=== PATIENT | male | born 1965 | race Caucasian/White ===

== ENCOUNTER 2018-11-08 11:23 | Inpatient (IN) | payer OTHER, SELFPAY ==
[2018-11-08] MEDS ORDERED: EPINEPHrine 1 MG/10 ML Abboject SYRINGE ONE (11:33)
[2018-11-08] MEDS ORDERED: Atropine Sulfate 1 mg/1 ml Vial ONE ×2 (11:33→11:36)
[2018-11-08] MEDS ORDERED: Atropine Sulfate 1 mg/10 ml Syringe ONE ×2 (11:33→11:36)
[2018-11-08] MEDS ORDERED: Nitroglycerin 100MG/250ML BOT 250 ML ONE (11:34)
[2018-11-08] MEDS ORDERED: Heparin 10,000 UNITS/1 ML VIAL ONE (11:56)
[2018-11-08] MEDS ORDERED: Midazolam HCl 2 mg/2 ml Vial ONE (11:56)
[2018-11-08] MEDS ORDERED: Iopamidol 370 76% 100 ML VIAL ONE (11:59)
[2018-11-08] MEDS ORDERED: Fentanyl 100 MCG/2 ML VIAL ONE (12:19)
[2018-11-08] MEDS ORDERED: Aspirin Chewable 81 MG TAB ONE (13:38)
[2018-11-08] MEDS ORDERED: Sodium Chloride 0.9% 200 ML IV PRN (13:52)
[2018-11-08] MEDS ORDERED: Acetaminophen/Codeine 30-300mg Tablet PO PRN ×2 (13:52)
[2018-11-08] MEDS ORDERED: Nitroglycerin 0.4 MG TAB (25 Tab Bottle) SL PRN (13:52)
[2018-11-08] MEDS ORDERED: Ondansetron PF 4 MG/2 ML Vial IVP PRN (13:54)
[2018-11-08] MEDS ORDERED: Sodium Chloride 0.9% 1,000 ML IV SCH (14:30)
[2018-11-08] MEDS ORDERED: Carvedilol 3.125 MG TAB PO SCH (17:00)
--- NOTE | 2018-11-08 17:10 | EKG ---
Test Reason : POST PTCA/STENTS X 2 Blood Pressure : / mmHG Vent. Rate : 059 BPM Atrial Rate : 059 BPM P-R Int : 158 ms QRS Dur : 084 ms QT Int : 434 ms P-R-T Axes : 049 015 -31 degrees QTc Int : 429 ms Sinus bradycardia Septal infarct , age undetermined Inferior infarct , age undetermined Abnormal ECG No previous ECGs available Confirmed by Carloz PALUMBO ([id number]) on 11/08/2018 5:09:49 PM Referred By: LAVERNE Confirmed By:Carloz PALUMBO
[2018-11-08 18:12] LABS: CKMB 26.1 ng/mL (0-6.6)
--- NOTE | 2018-11-08 20:32 | HP ---
REASON FOR ADMISSION: Acute inferior myocardial infarction. HISTORY OF PRESENT ILLNESS: Mr. Hanks is a very pleasant 53-year-old man with acute myocardial infarction. The patient has been having chest pain, which has been intense since really the previous day. However, this morning it intensified and he ultimately went to the emergency room in [facility]. He was found to be having acute inferior myocardial infarction. He had transient bradycardia. He was transferred here for emergency intervention. PAST MEDICAL HISTORY: 1. History of chest pain about a year ago with negative cardiac enzymes. 2. Some history of high cholesterol, but he does not know the levels. 3. Otherwise no medical history. No cardiac history. MEDICATION: On a routine basis is none. ALLERGIES: NONE. FAMILY HISTORY: Negative for heart disease in a young age. SOCIAL HISTORY: Smoked briefly in high school, but no significant tobacco use. He is a retired residential lawn specialist. REVIEW OF SYSTEMS: CONSTITUTIONAL: Positive for weakness, fatigue, and intense pain. VISION: No changes. HEARING: No changes. PULMONARY: No cough or wheezing. GASTROINTESTINAL: No nausea, vomiting, diarrhea. SKIN: No rashes. NEUROLOGIC: No unilateral weakness or numbness. PSYCHIATRIC: No unusual depression or anxiety. PHYSICAL EXAMINATION: GENERAL: This is an ill-appearing middle-aged gentleman with continued distress. VITAL SIGNS: Blood pressure was 120/70, pulse 70s. HEENT: Eyes; sclerae nonicteric. Mouth; mucous membranes moist. NECK: Supple. No lymphadenopathy. LUNGS: Clear. No wheezing, rales, or rhonchi. CARDIAC: Normal S1, normal S2. There is no murmur, rub, or gallop. ABDOMEN: Soft and nontender. No hepatosplenomegaly. EXTREMITIES: Warm, dry. No clubbing or cyanosis. No edema. HEMATOLOGIC: No unusual bruising. PSYCHIATRIC: Apprehensive. LABORATORY STUDIES: EKG showed sinus rhythm with inferior ST elevation. ASSESSMENT: 1. Acute inferior myocardial infarction. 2. Remote history of hypercholesterolemia. 3. Previous history of chest pain about a year ago. PLAN: Proceed to cardiac catheterization and intervention as indicated. Discussed risks quickly, iodine allergy. He understood risk of including bleeding, stent thrombosis, stent restenosis, emergency surgery, and emergency arrangements were being made and pursued. The patient had successful stent implantation in the right coronary artery as outlined in the chart. Job ID: [id number]
[2018-11-08] MEDS: TICAGRELOR 90 MG TABLET PO SCH (21:38)
[2018-11-09 06:52] LABS: CKMB 17.1 ng/mL (0-6.6); Critical Call CKMB RESULT DECREASING
[2018-11-09] MEDS: TICAGRELOR 90 MG TABLET PO SCH ×2 (09:15→20:26)
[2018-11-09] MEDS: Aspirin 81 mg Enteric Coated Tablet PO SCH (09:15)
--- NOTE | 2018-11-09 11:44 | PRG ---
DATE OF SERVICE: 11/09/2018 SUBJECTIVE: Mr. Hanks is doing well. He does have some mild groin soreness. Yesterday, the Coreg had to be held as the heart rate was in the mid 50s. OBJECTIVE: LUNGS: Clear. CARDIAC: Normal S1 and normal S2. ABDOMEN: Soft and nontender. EXTREMITIES: No edema. PERTINENT LABORATORY DATA: The troponin only went up to 5.2. LDL cholesterol this morning is 150. ASSESSMENT: 1. Status post inferior myocardial infarction treated with emergency stent implantation. 2. Also has diffuse coronary artery disease in the other vessels. PLAN: 1. Try again with carvedilol. 2. Lisinopril. 3. Aspirin and ticagrelor. 4. Statin therapy. 5. Try to transfer to the telemetry unit. Job ID: [id number]
[2018-11-09] MEDS: Carvedilol 3.125 MG TAB PO SCH (16:25)
--- NOTE | 2018-11-09 16:40 | ULT ---
US PseudoAneurysm Edgar Evl History: [Groin soreness. Post PCI] Comparison: None. Findings: Real-time grayscale and color evaluation of the right groin was obtained. There is hematoma . No pseudoaneurysm. Impression: Soft tissue hematoma without pseudoaneurysm.
[2018-11-09] MEDS ORDERED: Atorvastatin Calcium 40 MG TAB PO SCH (21:00)
--- NOTE | 2018-11-10 08:31 | CON ---
DATE OF CONSULTATION: 11/09/2018 HISTORY OF PRESENT ILLNESS: Mr. Hanks is a 53-year-old male who presented with myocardial infarction. He is going to the bed laborer for coronary stenting. Peak troponin measured this morning at 5.2. He apparently has been having chest pain for several days. He actually cut his yard while he is having chest pain, then decided prior to come in that he just could not take the discomfort anymore. He was transferred here. PAST MEDICAL HISTORY: Remarkable for lipid disorder. SOCIAL HISTORY: He is a nonsmoker, nondrinker. 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 FAMILY HISTORY: Negative for lung or heart disease in early age. REVIEW OF SYSTEMS: A 10-point review of systems completed, is otherwise negative. PHYSICAL EXAMINATION: GENERAL: He is in no distress. VITAL SIGNS: Heart rate 60, blood pressure 143/85, respiratory rate 14. HEENT: Pupils are equal. Sclerae are anicteric. NECK: Supple. No lymphadenopathy. LUNGS: Clear. HEART: Regular rhythm. S1 and S2 are normal. ABDOMEN: Soft and nontender. EXTREMITIES: Without clubbing, cyanosis, or edema. NEURO: Nonfocal. LABORATORY DATA: White count 7.3, hemoglobin 15.8, platelets 200,000. Sodium 140, potassium 3.7, chloride 104, bicarb 22, BUN 13, creatinine 1, glucose 141 yesterday at 1020 hours. IMPRESSION: Myocardial infarction status post percutaneous intervention ____ placement of a stent by Dr. Garcia. We will follow while he is in ICU. This is a 70 minute consult, with greater than 50% of time spent on unit coordinating care. Job ID: [id number] [facility]
[2018-11-10] MEDS: Aspirin 81 mg Enteric Coated Tablet PO SCH ×2 (08:49→08:58)
[2018-11-10] MEDS: Carvedilol 3.125 MG TAB PO SCH ×2 (08:50→17:07)
[2018-11-10] MEDS: TICAGRELOR 90 MG TABLET PO SCH (08:51)
[2018-11-10] MEDS ORDERED: Lisinopril 5 MG TAB PO SCH (09:00)
[2018-11-10] MEDS ORDERED: Lisinopril 2.5 MG TAB PO SCH (09:00)
[2018-11-10 15:40] VITALS: BP 108/69; TEMP 98.7
[2018-11-10] MEDS ORDERED: Rosuvastatin 20 MG TAB PO SCH (21:00)
--- NOTE | 2018-11-11 04:34 | DIS ---
DATE OF ADMISSION: 11/08/2018 DATE OF DISCHARGE: 11/10/2018 FINAL DIAGNOSES: 1. Acute myocardial infarction, inferior wall, treated with emergency stent implantation. 2. Hypercholesterolemia. MEDICATIONS: At the time of discharge: 1. Brilinta 90 mg tablet one twice daily. 2. Aspirin 81 mg daily. 3. Carvedilol 3.125 mg twice daily. 4. Crestor 40 mg daily. 5. Lisinopril 5 mg daily. 6. Nitroglycerin 1/150 sublingual p.r.n. chest pain. Follow up with the with Dr. Mahan in a week to see us in a couple of weeks. The patient was brought to the cardiac catheterization lab in an emergency state. He presented with an acute inferior myocardial infarction, was found to have 100% occlusion of the right coronary artery. The patient had 2 stents placed. It was a 3.5 x 28 mm stent placed more distally and then a 4.0 x 28 mm stent placed more proximally. The distal stent was post dilated with a high-pressure balloon of 3.5 mm. The mid stent was dilated to 4 mm with 4 mm x 28 mm balloon. The patient did very well, ejection fraction is 40%. This patient does have a 50% lesion in the right coronary more distally, the LAD has diffuse 60-70 percent proximal and mid with moderate calcium. There is also borderline stenosis in the circumflex distribution. The patient was completely asymptomatic prior to his infarction. PERTINENT LABORATORY DATA: The peak troponin level was only 5.2, which is relatively small enzyme rise for such a large vessel indicating that there was very likely we are going to see a lot of improvement in left ventricular function. Total cholesterol was 210, LDL was 153, that was drawn the morning after the infarct. Hemoglobin is 15.8, potassium 3.7 on the 10th. BUN was 13, creatinine 1. Only very low dose Coreg could be tolerated because of lower heart rates. The patient will be released home to see us in followup. I would recommend aggressive medical therapy for the rest of the vessels. No further percutaneous intervention is planned at this time. At some point, we will probably do stress testing perhaps 6 months out to re-evaluate functional status. The patient will be released today to be followed up in the office. Job ID: [id number]
== END 2018-11-10 18:59 | disposition home or self-care (01) | DRG 247 ==
LOC: CCL 11:23 → CCU 12:01 → 2NO 11-09 16:56
PROVIDERS: ADMIT Internal Medicine Cardiovascular Disease; ATTEND Internal Medicine Cardiovascular Disease
PROC: 027135Z Dilation of Coronary Artery, Two Arteries with Two Drug-eluting Intraluminal Devices, Percutaneous Approach (ICD-10-PCS; principal; 2018-11-08)
PROC: 4A023N7 Measurement of Cardiac Sampling and Pressure, Left Heart, Percutaneous Approach (ICD-10-PCS; 2018-11-08)
PROC: B2151ZZ Fluoroscopy of Left Heart using Low Osmolar Contrast (ICD-10-PCS; 2018-11-08)
PROC: B2111ZZ Fluoroscopy of Multiple Coronary Arteries using Low Osmolar Contrast (ICD-10-PCS; 2018-11-08)
DX: I21.9 Acute myocardial infarction, unspecified (principal); E78.00 Pure hypercholesterolemia, unspecified; Z87.891 Personal history of nicotine dependence; Z79.899 Other long term (current) drug therapy
CPT/HCPCS: 36415; 76942; 80061; 82553; 84484; 85347; 92941; 93005; 93010; 93458; 93798; 93926; 99152; 99153; C1769; C1874; C1887; C9606; J0171; J0461; J1644; J2250; J3010; Q9967

== ENCOUNTER 2023-06-12 08:25 | Inpatient (IN) | payer OTHER ==
[2023-06-12] MEDS ORDERED: Ondansetron PF 4 MG/2 ML Vial ONE (08:29)
[2023-06-12] MEDS ORDERED: NOREPINEPHRINE 8 MG/250 ML-D5W 250 ML ONE (08:48)
[2023-06-12 08:58] LABS: #Monocytes 0.6 thou/uL (0.11-0.59); #Neutrophils 6.8 thou/uL (1.40-6.50); %Basophils 0.3 % (0.0-1.0); %Eosinophils 0.4 % (0.0-10.0); %Lymphocytes 26.8 % (21.0-51.0); %Monocytes 5.3 % (0.0-10.0); %Neutrophils 64.7 % (42.0-75.0); Hematocrit 37.1 % (42.0-52.0); Hemoglobin 12.3 g/dL (14.0-18.0); Mean Corpuscular HGB CONC 33.2 g/dL (32.0-36.0); Mean Corpuscular Hemoglobin 33.5 pg (27.0-31.0); Mean Corpuscular Volume 101.1 fl (78.0-98.0); Mean Platelet Volume 10.1 fL (7.4-10.4); Platelet Count 190 10x3/uL (130-400); RBC Distribution Width 13.6 % (11.5-14.5); Red Blood Cell (RBC) Count 3.67 mill/uL (4.70-6.10); White Blood Cell (WBC) Count 10.5 10x3/uL (4.8-10.8)
[2023-06-12 09:17] LABS: ALT (SGPT) 44 U/L (8-55); AST (SGOT) 55 U/L (5-34); Albumin 3.8 g/dL (3.5-5.0); Alkaline Phosphatase 81 U/L (40-110); Anion Gap 15 mmol/L (10-20); BUN (Urea Nitrogen) 26 mg/dL (8.4-25.7); Bilirubin, Total 0.6 mg/dL (0.2-1.2); Calc. Creatinine Clearance 0 mL/min (70-130); Calcium 8.8 mg/dL (7.8-10.44); Carbon Dioxide 17 mmol/L (22-29); Chloride 106 mmol/L (98-107); Estimated GFR 94; Globulin 2.1 g/dL (2.4-3.5); Glucose 221 mg/dL (70-105); Lipase 21 U/L (8-78); Potassium 3.4 mmol/L (3.5-5.1); Protein, Total 5.9 g/dL (6.0-8.3); Sodium 135 mmol/L (136-145)
[2023-06-12] MEDS ORDERED: fentaNYL 50 mcg/mL 1 mL Vial ONE (09:17)
[2023-06-12 09:21] LABS: INR-International Normal Ratio 1.4; PTT 34.9 sec (22.9-36.1); Prothrombin Time 17.3 sec (12.0-14.7)
[2023-06-12 09:37] LABS: Bilirubin Negative (Negative); Blood, Urine 3+ (Negative); Clarity Clear (Clear); Glucose, Urine (Dipstick) Normal (Negative); Ketone, Urine Negative (Negative); Leukocyte Negative Leu/uL (Negative); Nitrite Negative (Negative); Protein, Urine (Dipstick) 30 mg/dL (Neg-Trace); Specific Gravity, Urine 1.022 (1.002-1.036); Urobilinogen Normal mg/dL (Less than 2)
[2023-06-12] MEDS ORDERED: EPINEPHrine 1 MG/ML VIAL ONE (09:46)
[2023-06-12] MEDS ORDERED: Boostrix 0.5 ML (Tdap) VIAL (>/=7 yrs of age) ONE (09:50)
[2023-06-12 09:56] LABS: CAUTI Indications for Culture Pelvic or flank pain; Squamous Epithelial 0-3 HPF (0-3); WBC/HPF 0-3 HPF (0-3)
[2023-06-12 09:57] LABS: Urine Culture Reflex No No
[2023-06-12] MEDS ORDERED: Ondansetron PF 4 MG/2 ML Vial IVP PRN (10:24)
[2023-06-12] MEDS ORDERED: Glucagon 1 MG/ML KIT IM PRN ×2 (10:24→17:23)
[2023-06-12] MEDS ORDERED: Ipratropium/Albuterol 3 ML NEB NEB PRN (10:24)
[2023-06-12] MEDS ORDERED: Morphine 2 MG/ML VIAL SLOW IVP PRN ×2 (10:24→12:30)
[2023-06-12] MEDS ORDERED: Dextrose 5% in Water 1,000 ML IV PRN ×2 (10:24→17:23)
[2023-06-12] MEDS ORDERED: traMADol HCl 50 MG TAB PO PRN (10:24)
[2023-06-12] MEDS ORDERED: Dextrose 50% Abboject 50 ML SYRINGE SLOW IVP PRN ×2 (10:24→17:23)
[2023-06-12] MEDS ORDERED: Norepinephrine 8 MG/0.9% NS 250 ML IVPB SCH (10:30)
[2023-06-12] MEDS ORDERED: EPINEPHrine 4 MG in Dextrose 5% in Water 250 ML IV SCH (10:30)
[2023-06-12] MEDS ORDERED: Vasopressin 20 UNITS in Sodium Chloride 0.9% 50 ML IV SCH (10:30)
[2023-06-12] MEDS ORDERED: EPINEPHrine 1 MG/10 ML Abboject SYRINGE ONE (10:32)
[2023-06-12] MEDS ORDERED: Iopamidol-370 76% 500 ML MDV (1 ML CHARGE) ONE (10:34)
[2023-06-12] MEDS ORDERED: Lidocaine 1% PF 5 ML VIAL ONE (10:57)
[2023-06-12] MEDS ORDERED: Lidocaine 1% (PF) 30 ML VIAL ONE (11:00)
[2023-06-12] MEDS ORDERED: Hydrocortisone Sod Succ/PF 100 mg/2 ml Vial ONE (11:23)
[2023-06-12] MEDS ORDERED: Ketamine In 0.9 % NaCl 50 MG/5 ML SYRINGE ONE ×2 (11:27→11:40)
[2023-06-12] MEDS ORDERED: Rocuronium Bromide 10 MG/ML (10ML VIAL) ONE (11:30)
[2023-06-12] MEDS ORDERED: Ketamine 500 mg/500 ml in NS IVPB SCH (12:15)
[2023-06-12] MEDS ORDERED: DISCONTINUE PREVIOUS NARCOTIC PAIN MEDICATIONS AND BENZODIAZEPINES FS SCH (12:30)
[2023-06-12] MEDS ORDERED: Fentanyl BOLUS 250 ML IVPB PRN (12:30)
[2023-06-12] MEDS ORDERED: Propofol BOLUS 1,000 MG/100 ML VIAL IV PRN (12:30)
[2023-06-12] MEDS ORDERED: Fentanyl CADD 100 ML ONE (12:32)
[2023-06-12 12:50] LABS: Lactic Acid 10.1 mmol/L (0.5-2.2)
[2023-06-12 12:55] LABS: Base Excess (BEa) -17.3 mEq/L (-2.0 to +3.0); CO2 Tension 39.2 mmHg (35.0-45.0); Calcium, Ionized (arterial) 1.13 mmol/L (1.12-1.30); Carboxyhemoglobin (COHb) 0.5 gm% (0.0-3.0); Hematocrit-ABG 32 % (42.0-52.0); Hemoglobin (Hb) 10.8 g/dL (14.0-18.0); O2 Tension (PaO2), arterial 116.8 mmHg (80.0-100.0); Potassium - ABG Lab 3.34 mmol/L (3.70-5.30)
[2023-06-12] MEDS ORDERED: Sodium Bicarb 50 MEQ/50 ML Abboject 8.4% SYRINGE IVP SCH (13:00)
[2023-06-12] MEDS: Sodium Chloride 0.9% 1,000 ML IV SCH ×2 (13:00→18:29)
[2023-06-12 13:09] LABS: pH, Arterial 7.089 (7.35-7.45)
[2023-06-12 13:10] LABS: Actual Bicarbonate (HCO3a) 11.6 mEq/L (22-28); Puncture Site Arterial Line
[2023-06-12] MEDS: Fentanyl CADD 100 ML IV SCH (13:15)
[2023-06-12] MEDS: Lorazepam 2 MG/ML VIAL SLOW IVP PRN (13:15)
[2023-06-12] MEDS ORDERED: Electrolyte Replacement Protocol 1 EACH FS SCH (13:15)
[2023-06-12] MEDS: Sodium Bicarbonate 150 MEQ in Dextrose 5% in Water 1,000 ML IV SCH ×2 (13:39→23:49)
[2023-06-12] MEDS ORDERED: TETANUS, DIPHTHERIA TOX,ADULT (TDVAX) 0.5 ML VIAL IM ONE ×2 (14:00→17:23)
[2023-06-12] MEDS: cefTRIAXone\\ROCEPHIN 1 GM in Sodium Chloride 0.9% 100 ML IVPB SCH (14:08)
[2023-06-12] MEDS: Potassium Chloride 20 MEQ in Premix 1 BAG IVPB SCH ×2 (14:08→17:08)
[2023-06-12] MEDS: Acetaminophen 325 MG TAB PO SCH ×3 (14:37→23:41)
[2023-06-12] MEDS ORDERED: Lactated Ringer's 1,000 ML IV SCH (15:15)
[2023-06-12 16:46] LABS: #Monocytes 1.5 thou/uL (0.11-0.59); #Neutrophils 11.9 thou/uL (1.40-6.50); %Basophils 0.1 % (0.0-1.0); %Eosinophils 0.1 % (0.0-10.0); %Lymphocytes 6.3 % (21.0-51.0); %Monocytes 10.1 % (0.0-10.0); %Neutrophils 82.6 % (42.0-75.0); Hematocrit 29.8 % (42.0-52.0); Hemoglobin 10.3 g/dL (14.0-18.0); Mean Corpuscular HGB CONC 34.6 g/dL (32.0-36.0); Mean Corpuscular Hemoglobin 32.3 pg (27.0-31.0); Mean Platelet Volume 10.2 fL (7.4-10.4); Platelet Count 122 10x3/uL (130-400); RBC Distribution Width 15.2 % (11.5-14.5); Red Blood Cell (RBC) Count 3.19 mill/uL (4.70-6.10); White Blood Cell (WBC) Count 14.4 10x3/uL (4.8-10.8)
[2023-06-12 16:49] LABS: Mean Corpuscular Volume 93.4 fl (78.0-98.0)
[2023-06-12] MEDS: Hydrocortisone Sod Succ/PF 100 mg/2 ml Vial IVP SCH ×2 (17:08→23:42)
[2023-06-12] MEDS: NOREPINEPHRINE 8 MG/250 ML-D5W 250 ML IVPB SCH ×2 (17:22→21:04)
[2023-06-12] MEDS: HumaLOG 300 UNITS/3 ML VIAL SC PRN ×2 (18:11→21:57)
[2023-06-12] MEDS: Insulin Glargine 30 UNITS/0.3 ML VIAL SC SCH (21:15)
[2023-06-12] MEDS: Famotidine/PF 20 mg/2ml Vial SLOW IVP SCH (21:15)
[2023-06-13] MEDS: NOREPINEPHRINE 8 MG/250 ML-D5W 250 ML IVPB SCH (02:27)
[2023-06-13] MEDS: Sodium Chloride 0.9% 1,000 ML IV SCH ×4 (04:41→17:24)
[2023-06-13 04:47] LABS: Hematocrit 24.7 % (42.0-52.0); Hemoglobin 9.1 g/dL (14.0-18.0); Mean Corpuscular HGB CONC 36.8 g/dL (32.0-36.0); Mean Corpuscular Hemoglobin 32.3 pg (27.0-31.0); Mean Platelet Volume 10.9 fL (7.4-10.4); Platelet Count 97 10x3/uL (130-400); Red Blood Cell (RBC) Count 2.82 mill/uL (4.70-6.10); White Blood Cell (WBC) Count 14.4 10x3/uL (4.8-10.8)
[2023-06-13] MEDS: Fentanyl CADD 100 ML IV SCH (04:53)
[2023-06-13 04:55] LABS: Delete Auto Diff?? YES; Manual Diff?? YES; Mean Corpuscular Volume 87.6 fl (78.0-98.0)
[2023-06-13] MEDS: Acetaminophen 325 MG TAB PO SCH ×4 (05:04→23:07)
[2023-06-13] MEDS: Hydrocortisone Sod Succ/PF 100 mg/2 ml Vial IVP SCH ×4 (05:06→23:06)
[2023-06-13] MEDS: HumaLOG 300 UNITS/3 ML VIAL SC PRN (05:06)
[2023-06-13 05:13] LABS: Anion Gap 11 mmol/L (10-20); BUN (Urea Nitrogen) 20 mg/dL (8.4-25.7); Calc. Creatinine Clearance 87 mL/min (70-130); Calcium 7.7 mg/dL (7.8-10.44); Carbon Dioxide 25 mmol/L (22-29); Chloride 102 mmol/L (98-107); Estimated GFR 100; Glucose 218 mg/dL (70-105); Potassium 3.8 mmol/L (3.5-5.1); Sodium 134 mmol/L (136-145)
[2023-06-13 05:24] LABS: Anisocytosis SLIGHT = 6-15 cells HPF (0-5); Band 4 % (5-11); CellaVision Operator ID lab.sh2; Hypochromia SLIGHT = 6-15 cells HPF (0-5); Lymphocytes 12 % (21-51); Macrocytosis SLIGHT = 6-15 cells HPF (0-5); Monocytes 6 % (0-10); Neutrophil 78 % (42-75); Platelet Adequacy Comment Platelets Decreased; Polychromasia SLIGHT = 2-3 cells HPF (0-2); Total Cell Count 101
[2023-06-13] MEDS: Famotidine/PF 20 mg/2ml Vial SLOW IVP SCH ×2 (09:19→20:34)
[2023-06-13 09:32] LABS: Lactic Acid 3.7 mmol/L (0.5-2.2)
[2023-06-13 09:36] LABS: Magnesium 1.6 mg/dL (1.6-2.6)
[2023-06-13 09:52] LABS: Actual Bicarbonate (HCO3a) 23.8 mEq/L (22-28); Base Excess (BEa) 2.6 mEq/L (-2.0 to +3.0); CO2 Tension 24.9 mmHg (35.0-45.0); Calcium, Ionized (arterial) 1.02 mmol/L (1.12-1.30); Carboxyhemoglobin (COHb) 0.4 gm% (0.0-3.0); Hematocrit-ABG 26 % (42.0-52.0); Hemoglobin (Hb) 8.8 g/dL (14.0-18.0); O2 Tension (PaO2), arterial 182.4 mmHg (80.0-100.0); Potassium - ABG Lab 3.24 mmol/L (3.70-5.30); Puncture Site Arterial Line; pH, Arterial 7.598 (7.35-7.45)
[2023-06-13 09:53] LABS: ALV-art Gradient 178.625 mmHg (0-20)
[2023-06-13] MEDS ORDERED: Potassium Phosphate 15 MMOL in Sodium Chloride 0.9% 100 ML IVPB SCH (10:00)
[2023-06-13] MEDS ORDERED: Lactated Ringer's 500 ML IV SCH (10:00)
[2023-06-13] MEDS ORDERED: Magnesium 2 GM/50 ML(in water) 2 GM in Premix 1 BAG IVPB SCH ×2 (10:00→11:27)
[2023-06-13] MEDS ORDERED: CALCIUM GLUC 1 GM/NS 50 ML 1 GM in Premix 1 BAG IVPB SCH (10:15)
[2023-06-13] MEDS ORDERED: Magnesium 2 GM/50 ML(in water) 4 GM in Premix 1 BAG IVPB SCH (11:15)
[2023-06-13] MEDS: cefTRIAXone\\ROCEPHIN 1 GM in Sodium Chloride 0.9% 100 ML IVPB SCH (12:10)
[2023-06-13] MEDS ORDERED: Midazolam HCl 2 mg/2 ml Vial SLOW IVP SCH (14:46)
[2023-06-13] MEDS ORDERED: Calcium Chloride 1 GM/10 ML Abboject SYRINGE IVP SCH (14:47)
[2023-06-13] MEDS: Propofol 1,000 MG/100 ML VIAL IV PRN (17:17)
[2023-06-13] MEDS: Insulin Glargine 30 UNITS/0.3 ML VIAL SC SCH (20:33)
[2023-06-13 20:54] LABS: #Monocytes 1.2 thou/uL (0.11-0.59); %Basophils 0.1 % (0.0-1.0); %Lymphocytes 7.8 % (21.0-51.0); %Monocytes 7.1 % (0.0-10.0); %Neutrophils 84.3 % (42.0-75.0); Hematocrit 24.5 % (42.0-52.0); Hemoglobin 8.8 g/dL (14.0-18.0); Mean Corpuscular HGB CONC 35.9 g/dL (32.0-36.0); Mean Corpuscular Hemoglobin 32.2 pg (27.0-31.0); Mean Corpuscular Volume 89.7 fl (78.0-98.0); RBC Distribution Width 15.2 % (11.5-14.5); Red Blood Cell (RBC) Count 2.73 mill/uL (4.70-6.10); White Blood Cell (WBC) Count 16.6 10x3/uL (4.8-10.8)
[2023-06-13 21:06] LABS: Manual Diff?? YES; Platelet Count 78 10x3/uL (130-400)
[2023-06-13 21:32] LABS: Band 30 % (5-11); CellaVision Operator ID LAB.CLH1; Hypochromia SLIGHT = 6-15 cells HPF (0-5); Lymphocytes 6 % (21-51); Metamyelocyte 1 % (0-0); Monocytes 4 % (0-10); Neutrophil 59 % (42-75); Platelet Adequacy Comment Platelets Decreased; Polychromasia MARKED = >4 cells HPF (0-2); Total Cell Count 101
[2023-06-13 21:42] LABS: Lactic Acid 2.6 mmol/L (0.5-2.2)
[2023-06-13] MEDS: Lorazepam 2 MG/ML VIAL SLOW IVP PRN (22:50)
[2023-06-14] MEDS: Propofol 1,000 MG/100 ML VIAL IV PRN ×2 (03:59→17:24)
[2023-06-14] MEDS: Sodium Chloride 0.9% 1,000 ML IV SCH ×3 (03:59→17:23)
[2023-06-14 04:20] LABS: #Monocytes 1.2 thou/uL (0.11-0.59); #Neutrophils 12.2 thou/uL (1.40-6.50); %Basophils 0.1 % (0.0-1.0); %Neutrophils 84.2 % (42.0-75.0); Hematocrit 22.2 % (42.0-52.0); Mean Corpuscular Hemoglobin 32.4 pg (27.0-31.0); Mean Corpuscular Volume 89.9 fl (78.0-98.0); Mean Platelet Volume 10.8 fL (7.4-10.4); RBC Distribution Width 15.3 % (11.5-14.5); Red Blood Cell (RBC) Count 2.47 mill/uL (4.70-6.10); White Blood Cell (WBC) Count 14.5 10x3/uL (4.8-10.8)
[2023-06-14 04:21] LABS: Platelet Count 71 10x3/uL (130-400)
[2023-06-14 04:41] LABS: Lactic Acid 1.8 mmol/L (0.5-2.2)
[2023-06-14 04:53] LABS: Anion Gap 9 mmol/L (10-20); BUN (Urea Nitrogen) 15 mg/dL (8.4-25.7); Calc. Creatinine Clearance 115 mL/min (70-130); Carbon Dioxide 25 mmol/L (22-29); Chloride 107 mmol/L (98-107); Estimated GFR 106; Glucose 124 mg/dL (70-105); Phosphorus 2.9 mg/dL (2.3-4.7); Potassium 4.1 mmol/L (3.5-5.1); Sodium 137 mmol/L (136-145)
[2023-06-14] MEDS: Acetaminophen 325 MG TAB PO SCH ×3 (05:08→17:23)
[2023-06-14] MEDS: Hydrocortisone Sod Succ/PF 100 mg/2 ml Vial IVP SCH ×3 (05:08→21:52)
[2023-06-14 07:12] LABS: Actual Bicarbonate (HCO3a) 23.5 mEq/L (22-28); Base Excess (BEa) -0.2 mEq/L (-2.0 to +3.0); Calcium, Ionized (arterial) 1.15 mmol/L (1.12-1.30); Hematocrit-ABG 23 % (42.0-52.0); Hemoglobin (Hb) 7.9 g/dL (14.0-18.0); O2 Tension (PaO2), arterial 120.5 mmHg (80.0-100.0); Potassium - ABG Lab 4.02 mmol/L (3.70-5.30); pH, Arterial 7.457 (7.35-7.45)
[2023-06-14 07:14] LABS: Puncture Site Arterial Line
[2023-06-14] MEDS: Fentanyl CADD 100 ML IV SCH (07:59)
[2023-06-14] MEDS: Famotidine/PF 20 mg/2ml Vial SLOW IVP SCH ×2 (08:25→21:52)
[2023-06-14] MEDS ORDERED: Vancomycin 1 GM VIAL ONE (10:58)
[2023-06-14] MEDS ORDERED: Thrombin 5000 UNITS/5 ML VIAL ONE (10:58)
[2023-06-14] MEDS ORDERED: Magnesium 2 GM/50 ML(in water) 2 GM in Premix 1 BAG IVPB SCH (11:00)
[2023-06-14] MEDS ORDERED: Midazolam HCl 2 mg/2 ml Vial ONE (11:30)
[2023-06-14] MEDS ORDERED: PROPOFOL 20 ML ONE (11:30)
[2023-06-14] MEDS ORDERED: fentaNYL PF 100 MCG/2 ML SYRINGE ONE ×2 (11:30→12:56)
[2023-06-14] MEDS ORDERED: Lidocaine 1% (PF) 30 ML VIAL ONE ×2 (11:33→11:35)
[2023-06-14] MEDS ORDERED: PROPOFOL 200 MG/20 ML VIAL ONE (11:55)
[2023-06-14] MEDS ORDERED: Rocuronium Bromide 10 MG/ML (10ML VIAL) ONE (11:55)
[2023-06-14] MEDS ORDERED: PHENYLEPHRINE-NS 100 MCG/ML 10 ML SYRINGE ONE ×3 (11:55→15:15)
[2023-06-14] MEDS ORDERED: Vecuronium 10 MG VIAL ONE ×2 (11:55→12:15)
[2023-06-14] MEDS: cefTRIAXone\\ROCEPHIN 1 GM in Sodium Chloride 0.9% 100 ML IVPB SCH ×2 (17:42→21:51)
[2023-06-14] MEDS: Insulin Glargine 30 UNITS/0.3 ML VIAL SC SCH ×2 (21:53→21:58)
[2023-06-14] MEDS: Vancomycin 1 GM in Premix 1 BAG IVPB SCH (22:30)
[2023-06-15] MEDS: Acetaminophen 325 MG TAB PO SCH ×4 (00:09→17:39)
[2023-06-15] MEDS: Sodium Chloride 0.9% 1,000 ML IV SCH ×3 (01:39→17:36)
[2023-06-15 05:05] LABS: #Monocytes 0.9 thou/uL (0.11-0.59); #Neutrophils 8.2 thou/uL (1.40-6.50); %Lymphocytes 10.8 % (21.0-51.0); %Monocytes 8.9 % (0.0-10.0); %Neutrophils 78.5 % (42.0-75.0); Hematocrit 24.2 % (42.0-52.0); Hemoglobin 8.4 g/dL (14.0-18.0); Mean Corpuscular HGB CONC 34.7 g/dL (32.0-36.0); Mean Corpuscular Hemoglobin 31.9 pg (27.0-31.0); Mean Platelet Volume 10.6 fL (7.4-10.4); Platelet Count 92 10x3/uL (130-400); RBC Distribution Width 16.6 % (11.5-14.5); Red Blood Cell (RBC) Count 2.63 mill/uL (4.70-6.10); White Blood Cell (WBC) Count 10.5 10x3/uL (4.8-10.8)
[2023-06-15 05:35] LABS: Anion Gap 6 mmol/L (10-20); BUN (Urea Nitrogen) 12 mg/dL (8.4-25.7); Calc. Creatinine Clearance 116 mL/min (70-130); Calcium 7.4 mg/dL (7.8-10.44); Carbon Dioxide 29 mmol/L (22-29); Chloride 109 mmol/L (98-107); Estimated GFR 107; Glucose 113 mg/dL (70-105); Potassium 3.9 mmol/L (3.5-5.1); Sodium 140 mmol/L (136-145)
[2023-06-15] MEDS: Propofol 1,000 MG/100 ML VIAL IV PRN (05:58)
[2023-06-15] MEDS: Fentanyl CADD 100 ML IV SCH (07:25)
[2023-06-15 07:53] LABS: Actual Bicarbonate (HCO3a) 20.9 mEq/L (22-28); Base Excess (BEa) -2.8 mEq/L (-2.0 to +3.0); CO2 Tension 31.8 mmHg (35.0-45.0); Calcium, Ionized (arterial) 1.09 mmol/L (1.12-1.30); Carboxyhemoglobin (COHb) 0.4 gm% (0.0-3.0); Hematocrit-ABG 28 % (42.0-52.0); Hemoglobin (Hb) 9.5 g/dL (14.0-18.0); O2 Tension (PaO2), arterial 76.1 mmHg (80.0-100.0); Potassium - ABG Lab 3.61 mmol/L (3.70-5.30); pH, Arterial 7.435 (7.35-7.45)
[2023-06-15 07:58] LABS: Puncture Site Arterial Line
[2023-06-15] MEDS ORDERED: FLU VACC QS2023-24(6MOS UP)/PF 60 MCG/0.5 ML SYRINGE IM ONE (09:00)
[2023-06-15] MEDS: Polyethylene Glycol 3350 17 GM Packet PO SCH (10:04)
[2023-06-15] MEDS: Hydrocortisone Sod Succ/PF 100 mg/2 ml Vial IVP SCH ×2 (10:04→20:38)
[2023-06-15] MEDS: Famotidine/PF 20 mg/2ml Vial SLOW IVP SCH ×2 (10:05→20:43)
[2023-06-15] MEDS ORDERED: DC Sedation Protocol FS ONE (10:41)
[2023-06-15] MEDS ORDERED: Vancomycin 1 GM/200 ML (FROZEN) BAG ONE (11:07)
[2023-06-15] MEDS: Vancomycin 1 GM in Premix 1 BAG IVPB SCH (11:22)
[2023-06-15] MEDS: Senokot S 8.6-50 MG TAB PO SCH ×2 (11:27→20:45)
[2023-06-15] MEDS: Morphine 2 MG/ML VIAL SLOW IVP PRN ×7 (11:38→23:59)
[2023-06-15] MEDS ORDERED: Ketorolac Tromethamine 30 MG/ML VIAL IVP SCH (20:00)
[2023-06-15] MEDS: cefTRIAXone\\ROCEPHIN 1 GM in Sodium Chloride 0.9% 100 ML IVPB SCH (20:44)
[2023-06-15] MEDS: Insulin Glargine 30 UNITS/0.3 ML VIAL SC SCH (20:44)
[2023-06-15] MEDS: Methocarbamol 500 MG TAB PO PRN (20:45)
[2023-06-15] MEDS: HYDROcodone/Acetaminophen 7.5/325 mg Tablet PO PRN (20:46)
[2023-06-15 21:09] LABS: Vancomycin, Trough 5.5 ug/mL
[2023-06-15] MEDS: Vancomycin (BATCH) 1.25 GM in Premix 1 BAG IVPB SCH (22:12)
[2023-06-16] MEDS: HYDROcodone/Acetaminophen 7.5/325 mg Tablet PO PRN ×3 (00:05→10:04)
[2023-06-16] MEDS: Acetaminophen 325 MG TAB PO SCH ×5 (00:07→23:57)
[2023-06-16] MEDS: Sodium Chloride 0.9% 1,000 ML IV SCH (01:16)
[2023-06-16] MEDS: Morphine 2 MG/ML VIAL SLOW IVP PRN ×6 (01:17→10:45)
[2023-06-16] MEDS: Vancomycin (BATCH) 1.25 GM in Premix 1 BAG IVPB SCH ×3 (05:38→22:26)
[2023-06-16 07:05] LABS: #Monocytes 0.8 thou/uL (0.11-0.59); #Neutrophils 6.5 thou/uL (1.40-6.50); %Basophils 0.1 % (0.0-1.0); %Eosinophils 0.1 % (0.0-10.0); %Lymphocytes 10.5 % (21.0-51.0); %Monocytes 9.8 % (0.0-10.0); %Neutrophils 75.5 % (42.0-75.0); Hematocrit 23.8 % (42.0-52.0); Hemoglobin 8.1 g/dL (14.0-18.0); Mean Corpuscular Hemoglobin 31.9 pg (27.0-31.0); Mean Corpuscular Volume 93.7 fl (78.0-98.0); Mean Platelet Volume 10.4 fL (7.4-10.4); Platelet Count 92 10x3/uL (130-400); RBC Distribution Width 16.2 % (11.5-14.5); Red Blood Cell (RBC) Count 2.54 mill/uL (4.70-6.10); White Blood Cell (WBC) Count 8.6 10x3/uL (4.8-10.8)
[2023-06-16 07:31] LABS: Anion Gap 11 mmol/L (10-20); BUN (Urea Nitrogen) 13 mg/dL (8.4-25.7); Calc. Creatinine Clearance 130 mL/min (70-130); Calcium 7.5 mg/dL (7.8-10.44); Carbon Dioxide 25 mmol/L (22-29); Chloride 110 mmol/L (98-107); Estimated GFR 110; Glucose 116 mg/dL (70-105); Potassium 3.2 mmol/L (3.5-5.1); Sodium 143 mmol/L (136-145)
[2023-06-16] MEDS: Methocarbamol 500 MG TAB PO PRN ×2 (07:55→20:48)
[2023-06-16] MEDS: Senokot S 8.6-50 MG TAB PO SCH ×2 (09:05→20:48)
[2023-06-16] MEDS: Famotidine/PF 20 mg/2ml Vial SLOW IVP SCH ×2 (09:05→20:47)
[2023-06-16] MEDS: Polyethylene Glycol 3350 17 GM Packet PO SCH (09:05)
[2023-06-16] MEDS ORDERED: Potassium Chloride 20 MEQ TAB PO SCH (09:15)
[2023-06-16] MEDS: Fentanyl CADD 100 ML IVPB SCH (13:27)
[2023-06-16] MEDS ORDERED: diphenhydrAMINE 50 MG/ML VIAL IM/IV PRN (13:30)
[2023-06-16] MEDS ORDERED: Promethazine HCl 25 MG/ML VIAL IM PRN (13:30)
[2023-06-16] MEDS ORDERED: diphenhydrAMINE 25 MG CAP PO PRN (13:30)
[2023-06-16] MEDS ORDERED: Naloxone HCl 0.4 mg/ml Vial IV PRN (13:30)
[2023-06-16] MEDS ORDERED: Zolpidem Tartrate 5 MG TAB PO PRN (13:30)
[2023-06-16] MEDS ORDERED: Ondansetron PF 4 MG/2 ML Vial IVP PRN (13:30)
[2023-06-16] MEDS: cefTRIAXone\\ROCEPHIN 1 GM in Sodium Chloride 0.9% 100 ML IVPB SCH (20:47)
[2023-06-16] MEDS: Insulin Glargine 30 UNITS/0.3 ML VIAL SC SCH (20:48)
[2023-06-17 04:13] LABS: Hematocrit 24.9 % (42.0-52.0); Hemoglobin 8.4 g/dL (14.0-18.0); Mean Corpuscular HGB CONC 33.7 g/dL (32.0-36.0); Mean Corpuscular Hemoglobin 31.6 pg (27.0-31.0); Mean Corpuscular Volume 93.6 fl (78.0-98.0); Mean Platelet Volume 10.3 fL (7.4-10.4); Platelet Count 118 10x3/uL (130-400); RBC Distribution Width 15.9 % (11.5-14.5); Red Blood Cell (RBC) Count 2.66 mill/uL (4.70-6.10); White Blood Cell (WBC) Count 9.2 10x3/uL (4.8-10.8)
[2023-06-17 04:49] LABS: Anion Gap 11 mmol/L (10-20); BUN (Urea Nitrogen) 12 mg/dL (8.4-25.7); Calc. Creatinine Clearance 134 mL/min (70-130); Calcium 7.7 mg/dL (7.8-10.44); Carbon Dioxide 27 mmol/L (22-29); Chloride 107 mmol/L (98-107); Estimated GFR 111; Glucose 118 mg/dL (70-105); Potassium 3.1 mmol/L (3.5-5.1); Sodium 142 mmol/L (136-145)
[2023-06-17] MEDS: Acetaminophen 325 MG TAB PO SCH ×4 (05:11→23:08)
[2023-06-17] MEDS: Vancomycin (BATCH) 1.25 GM in Premix 1 BAG IVPB SCH ×3 (05:12→22:36)
[2023-06-17 05:19] LABS: Delete Auto Diff?? YES; Manual Diff?? YES
[2023-06-17] MEDS: Potassium Chloride 20 MEQ in Premix 1 BAG IVPB SCH ×2 (06:15→08:04)
[2023-06-17 07:49] LABS: Band 5 % (5-11); CellaVision Operator ID LAB.GE; Lymphocytes 4 % (21-51); Monocytes 8 % (0-10); Neutrophil 82 % (42-75); Nucleated RBC (Manual Ct) 1 % (0); Platelet Adequacy Comment Platelets Decreased; Polychromasia SLIGHT = 2-3 cells HPF (0-2); Reactive Lymphocytes 1 % (0-10); Total Cell Count 103
[2023-06-17] MEDS: Famotidine/PF 20 mg/2ml Vial SLOW IVP SCH (08:04)
[2023-06-17] MEDS: Senokot S 8.6-50 MG TAB PO SCH ×2 (08:04→22:36)
[2023-06-17] MEDS: Polyethylene Glycol 3350 17 GM Packet PO SCH (08:04)
[2023-06-17] MEDS: Famotidine 20 MG TAB PO SCH ×2 (08:49→22:36)
[2023-06-17 22:03] LABS: Vancomycin, Trough 16.3 ug/mL
[2023-06-17] MEDS: Insulin Glargine 30 UNITS/0.3 ML VIAL SC SCH (22:05)
[2023-06-17] MEDS: cefTRIAXone\\ROCEPHIN 1 GM in Sodium Chloride 0.9% 100 ML IVPB SCH (22:36)
[2023-06-18] MEDS: Acetaminophen 325 MG TAB PO SCH ×4 (05:11→23:02)
[2023-06-18] MEDS: Vancomycin (BATCH) 1.25 GM in Premix 1 BAG IVPB SCH ×3 (05:11→22:55)
[2023-06-18 05:30] LABS: Hematocrit 25.8 % (42.0-52.0); Hemoglobin 8.5 g/dL (14.0-18.0); Mean Corpuscular HGB CONC 32.9 g/dL (32.0-36.0); Mean Corpuscular Hemoglobin 31.4 pg (27.0-31.0); Mean Corpuscular Volume 95.2 fl (78.0-98.0); Mean Platelet Volume 10.4 fL (7.4-10.4); Platelet Count 129 10x3/uL (130-400); RBC Distribution Width 16.1 % (11.5-14.5); Red Blood Cell (RBC) Count 2.71 mill/uL (4.70-6.10)
[2023-06-18 05:41] LABS: Delete Auto Diff?? YES; Manual Diff?? YES
[2023-06-18 05:56] LABS: Anion Gap 13 mmol/L (10-20); BUN (Urea Nitrogen) 12 mg/dL (8.4-25.7); Calc. Creatinine Clearance 143 mL/min (70-130); Calcium 7.8 mg/dL (7.8-10.44); Carbon Dioxide 25 mmol/L (22-29); Chloride 107 mmol/L (98-107); Estimated GFR 112; Glucose 107 mg/dL (70-105); Potassium 3.1 mmol/L (3.5-5.1); Sodium 142 mmol/L (136-145)
[2023-06-18 06:09] LABS: Band 1 % (5-11); CellaVision Operator ID lab.abc; Lymphocytes 7 % (21-51); Monocytes 12 % (0-10); Myelocyte 3 % (0-0); Neutrophil 77 % (42-75); Platelet Adequacy Comment Platelets Normal; Polychromasia SLIGHT = 2-3 cells HPF (0-2); RBC Morphology Within Normal Limits; Smudge Cells 8.8 %; Total Cell Count 102
[2023-06-18] MEDS ORDERED: Potassium Bicarbonate/Cit Ac 20 MEQ TAB PO SCH ×2 (08:00→14:30)
[2023-06-18] MEDS ORDERED: Furosemide 20 MG/2 ML VIAL SLOW IVP SCH (08:00)
[2023-06-18 08:24] LABS: Magnesium 1.9 mg/dL (1.6-2.6)
[2023-06-18] MEDS ORDERED: Magnesium 2 GM/50 ML(in water) 2 GM in Premix 1 BAG IVPB SCH (08:30)
[2023-06-18] MEDS: Famotidine 20 MG TAB PO SCH ×2 (08:37→21:14)
[2023-06-18] MEDS: Senokot S 8.6-50 MG TAB PO SCH ×2 (08:37→21:14)
[2023-06-18] MEDS: Polyethylene Glycol 3350 17 GM Packet PO SCH (08:37)
[2023-06-18] MEDS: Fentanyl CADD 100 ML IVPB SCH (10:58)
[2023-06-18 13:59] LABS: Potassium 3.3 mmol/L (3.5-5.1)
[2023-06-18 20:48] LABS: Potassium 3.7 mmol/L (3.5-5.1)
[2023-06-18 20:57] LABS: Vancomycin, Trough 13.7 ug/mL
[2023-06-18] MEDS: Insulin Glargine 30 UNITS/0.3 ML VIAL SC SCH (21:15)
[2023-06-18] MEDS: cefTRIAXone\\ROCEPHIN 1 GM in Sodium Chloride 0.9% 100 ML IVPB SCH (21:15)
[2023-06-19] MEDS ORDERED: Ketorolac Tromethamine 30 MG/ML VIAL ONE (01:26)
[2023-06-19] MEDS ORDERED: Nitroglycerin 0.4 MG TAB (25 Tab Bottle) ONE (01:48)
[2023-06-19] MEDS ORDERED: Morphine 4 MG/ML VIAL ONE (01:49)
[2023-06-19] MEDS ORDERED: Nitroglycerin 0.4 MG TAB (25 Tab Bottle) SL PRN ×2 (01:59→08:15)
[2023-06-19] MEDS ORDERED: Ketorolac Tromethamine 30 MG/ML VIAL IVP SCH (02:00)
[2023-06-19] MEDS ORDERED: Morphine 4 MG/ML VIAL SLOW IVP PRN (02:03)
[2023-06-19 02:15] LABS: Hematocrit 28.5 % (42.0-52.0); Hemoglobin 9.5 g/dL (14.0-18.0); Mean Corpuscular HGB CONC 33.3 g/dL (32.0-36.0); Mean Corpuscular Hemoglobin 32.2 pg (27.0-31.0); Mean Corpuscular Volume 96.6 fl (78.0-98.0); Mean Platelet Volume 10.1 fL (7.4-10.4); Platelet Count 149 10x3/uL (130-400); RBC Distribution Width 15.9 % (11.5-14.5); Red Blood Cell (RBC) Count 2.95 mill/uL (4.70-6.10); White Blood Cell (WBC) Count 7.3 10x3/uL (4.8-10.8)
[2023-06-19 02:25] LABS: Delete Auto Diff?? YES
[2023-06-19 02:45] LABS: Troponin I 9.281 ng/mL (< 0.028)
[2023-06-19 02:46] LABS: Anion Gap 16 mmol/L (10-20); BUN (Urea Nitrogen) 16 mg/dL (8.4-25.7); Calc. Creatinine Clearance 136 mL/min (70-130); Carbon Dioxide 25 mmol/L (22-29); Chloride 104 mmol/L (98-107); Estimated GFR 111; Glucose 117 mg/dL (70-105); Magnesium 1.9 mg/dL (1.6-2.6); Potassium 3.8 mmol/L (3.5-5.1); Sodium 141 mmol/L (136-145)
[2023-06-19] MEDS ORDERED: Aspirin 81 mg Enteric Coated Tablet ONE (02:56)
[2023-06-19] MEDS: Vancomycin (BATCH) 1.25 GM in Premix 1 BAG IVPB SCH ×3 (05:15→22:47)
[2023-06-19] MEDS: Acetaminophen 325 MG TAB PO SCH ×4 (05:16→23:32)
[2023-06-19 06:55] LABS: Troponin I 10.249 ng/mL (< 0.028)
[2023-06-19] MEDS ORDERED: Magnesium 2 GM/50 ML(in water) 2 GM in Premix 1 BAG IVPB SCH (08:00)
[2023-06-19] MEDS ORDERED: TICAGRELOR 90 MG TABLET PO SCH (09:00)
[2023-06-19] MEDS: Lisinopril 5 MG TAB PO SCH (09:05)
[2023-06-19] MEDS: Aspirin 81 mg Enteric Coated Tablet PO SCH (09:05)
[2023-06-19] MEDS: Famotidine 20 MG TAB PO SCH ×2 (09:05→21:18)
[2023-06-19] MEDS: Senokot S 8.6-50 MG TAB PO SCH ×2 (09:05→21:18)
[2023-06-19] MEDS: Polyethylene Glycol 3350 17 GM Packet PO SCH (09:15)
[2023-06-19 14:49] LABS: Troponin I 17.726 ng/mL (< 0.028)
[2023-06-19] MEDS: Carvedilol 3.125 MG TAB PO SCH (18:23)
[2023-06-19] MEDS: Fentanyl CADD 100 ML IVPB SCH (19:37)
[2023-06-19] MEDS: cefTRIAXone\\ROCEPHIN 1 GM in Sodium Chloride 0.9% 100 ML IVPB SCH (21:16)
[2023-06-19] MEDS: Rosuvastatin 20 MG TAB PO SCH (21:17)
[2023-06-19] MEDS: Insulin Glargine 30 UNITS/0.3 ML VIAL SC SCH (21:18)
[2023-06-19 22:17] LABS: Vancomycin, Trough 11.7 ug/mL
[2023-06-19] MEDS ORDERED: Heparin 5,000 UNITS/ML VIAL SC SCH (23:00)
[2023-06-20 04:42] LABS: #Eosinphils 0.2 thou/uL (0.0-0.7); #Monocytes 0.7 thou/uL (0.11-0.59); #Neutrophils 4.1 thou/uL (1.40-6.50); %Basophils 0.5 % (0.0-1.0); %Eosinophils 2.9 % (0.0-10.0); %Monocytes 10.7 % (0.0-10.0); %Neutrophils 65.4 % (42.0-75.0); Hematocrit 27.2 % (42.0-52.0); Mean Corpuscular HGB CONC 33.1 g/dL (32.0-36.0); Mean Corpuscular Hemoglobin 32.1 pg (27.0-31.0); Mean Corpuscular Volume 97.1 fl (78.0-98.0); Mean Platelet Volume 9.6 fL (7.4-10.4); Platelet Count 169 10x3/uL (130-400); RBC Distribution Width 15.7 % (11.5-14.5); White Blood Cell (WBC) Count 6.3 10x3/uL (4.8-10.8)
[2023-06-20] MEDS: Vancomycin (BATCH) 1.25 GM in Premix 1 BAG IVPB SCH ×3 (05:48→21:26)
[2023-06-20] MEDS: Acetaminophen 325 MG TAB PO SCH ×4 (05:48→23:27)
[2023-06-20 06:27] LABS: Anion Gap 12 mmol/L (10-20); BUN (Urea Nitrogen) 16 mg/dL (8.4-25.7); Calc. Creatinine Clearance 129 mL/min (70-130); Calcium 7.9 mg/dL (7.8-10.44); Carbon Dioxide 24 mmol/L (22-29); Cardiac Risk 8.6 (Less than 4.5); Chloride 107 mmol/L (98-107); Cholesterol 248 mg/dl (< 200 Desired); Estimated GFR 110; Glucose 92 mg/dL (70-105); HDL Cholesterol 29 mg/dL (>60 Neg Risk); LDL Cholesterol, Calculated 202 mg/dL; Potassium 3.4 mmol/L (3.5-5.1); Sodium 140 mmol/L (136-145); Triglycerides 86 mg/dL (Less than 150)
[2023-06-20 06:34] LABS: Troponin I 11.016 ng/mL (< 0.028)
[2023-06-20] MEDS ORDERED: Potassium Chloride 20 MEQ TAB PO SCH (09:00)
[2023-06-20] MEDS ORDERED: traMADol HCl 50 MG TAB PO PRN ×2 (09:17)
[2023-06-20] MEDS ORDERED: HYDROcodone/Acetaminophen 10/325 mg Tablet PO PRN ×2 (09:19→09:20)
[2023-06-20] MEDS ORDERED: fentaNYL 50 mcg/mL 1 mL Vial SLOW IVP PRN (09:21)
[2023-06-20] MEDS: Famotidine 20 MG TAB PO SCH ×2 (10:25→20:21)
[2023-06-20] MEDS: Aspirin 81 mg Enteric Coated Tablet PO SCH (10:25)
[2023-06-20] MEDS: Lisinopril 5 MG TAB PO SCH (10:25)
[2023-06-20] MEDS: Polyethylene Glycol 3350 17 GM Packet PO SCH (10:26)
[2023-06-20] MEDS: Heparin 5,000 UNITS/ML VIAL SC SCH ×2 (10:27→20:23)
[2023-06-20] MEDS: Carvedilol 3.125 MG TAB PO SCH ×2 (10:30→16:54)
[2023-06-20] MEDS: Senokot S 8.6-50 MG TAB PO SCH ×2 (11:49→20:20)
[2023-06-20 12:05] VITALS: BMI 24.3
[2023-06-20] MEDS: Rosuvastatin 20 MG TAB PO SCH (20:20)
[2023-06-20] MEDS: cefTRIAXone\\ROCEPHIN 1 GM in Sodium Chloride 0.9% 100 ML IVPB SCH (20:21)
[2023-06-20] MEDS: Insulin Glargine 30 UNITS/0.3 ML VIAL SC SCH (20:22)
[2023-06-20] MEDS: Methocarbamol 500 MG TAB PO PRN (21:31)
[2023-06-21 04:13] LABS: #Eosinphils 0.1 thou/uL (0.0-0.7); #Monocytes 0.6 thou/uL (0.11-0.59); #Neutrophils 5.7 thou/uL (1.40-6.50); %Basophils 0.4 % (0.0-1.0); %Eosinophils 1.6 % (0.0-10.0); %Lymphocytes 11.2 % (21.0-51.0); %Neutrophils 76.9 % (42.0-75.0); Hematocrit 27.9 % (42.0-52.0); Hemoglobin 9.3 g/dL (14.0-18.0); Mean Corpuscular HGB CONC 33.3 g/dL (32.0-36.0); Mean Corpuscular Hemoglobin 31.6 pg (27.0-31.0); Mean Corpuscular Volume 94.9 fl (78.0-98.0); Mean Platelet Volume 9.9 fL (7.4-10.4); Platelet Count 194 10x3/uL (130-400); RBC Distribution Width 15.6 % (11.5-14.5); Red Blood Cell (RBC) Count 2.94 mill/uL (4.70-6.10); White Blood Cell (WBC) Count 7.5 10x3/uL (4.8-10.8)
[2023-06-21 04:40] LABS: Anion Gap 12 mmol/L (10-20); BUN (Urea Nitrogen) 15 mg/dL (8.4-25.7); Calc. Creatinine Clearance 131 mL/min (70-130); Carbon Dioxide 26 mmol/L (22-29); Chloride 107 mmol/L (98-107); Estimated GFR 110; Glucose 82 mg/dL (70-105); Potassium 3.1 mmol/L (3.5-5.1); Sodium 142 mmol/L (136-145)
[2023-06-21 04:45] LABS: Critical Call Chem Troponin I RESULT DECREASING; Troponin I 6.651 ng/mL (< 0.028)
[2023-06-21] MEDS: Acetaminophen 325 MG TAB PO SCH ×4 (05:11→23:43)
[2023-06-21] MEDS: Vancomycin (BATCH) 1.25 GM in Premix 1 BAG IVPB SCH ×3 (05:11→23:42)
[2023-06-21] MEDS ORDERED: Potassium Chloride 20 MEQ TAB PO SCH (08:00)
[2023-06-21] MEDS ORDERED: Magnesium 2 GM/50 ML(in water) 2 GM in Premix 1 BAG IVPB SCH (09:00)
[2023-06-21] MEDS: Lidocaine 4% Patch TD SCH ×2 (09:04→21:26)
[2023-06-21 09:14] LABS: Phosphorus 3.1 mg/dL (2.3-4.7)
[2023-06-21 09:16] LABS: Magnesium 1.7 mg/dL (1.6-2.6)
[2023-06-21] MEDS: Aspirin 81 mg Enteric Coated Tablet PO SCH (09:19)
[2023-06-21] MEDS: Famotidine 20 MG TAB PO SCH ×2 (09:20→21:25)
[2023-06-21] MEDS: Lisinopril 5 MG TAB PO SCH (09:20)
[2023-06-21] MEDS: Carvedilol 3.125 MG TAB PO SCH ×2 (09:20→17:14)
[2023-06-21] MEDS: Heparin 5,000 UNITS/ML VIAL SC SCH ×2 (09:23→21:26)
[2023-06-21] MEDS: Senokot S 8.6-50 MG TAB PO SCH ×2 (09:24→21:24)
[2023-06-21 13:46] LABS: Potassium 3.6 mmol/L (3.5-5.1)
[2023-06-21] MEDS ORDERED: cefTRIAXone (ROCEPHIN) 1 GM VIAL ONE (20:22)
[2023-06-21] MEDS: Insulin Glargine 30 UNITS/0.3 ML VIAL SC SCH (21:23)
[2023-06-21] MEDS: Rosuvastatin 20 MG TAB PO SCH (21:25)
[2023-06-21] MEDS: cefTRIAXone\\ROCEPHIN 1 GM in Sodium Chloride 0.9% 100 ML IVPB SCH (21:26)
[2023-06-21 22:43] LABS: Vancomycin, Trough 13.5 ug/mL
[2023-06-22 05:11] LABS: #Eosinphils 0.1 thou/uL (0.0-0.7); #Neutrophils 6.3 thou/uL (1.40-6.50); %Basophils 0.2 % (0.0-1.0); %Eosinophils 1.5 % (0.0-10.0); %Lymphocytes 11.2 % (21.0-51.0); %Monocytes 11.7 % (0.0-10.0); %Neutrophils 74.1 % (42.0-75.0); Hemoglobin 9.5 g/dL (14.0-18.0); Mean Corpuscular HGB CONC 33.9 g/dL (32.0-36.0); Mean Corpuscular Hemoglobin 32.3 pg (27.0-31.0); Mean Corpuscular Volume 95.2 fl (78.0-98.0); Mean Platelet Volume 10.1 fL (7.4-10.4); Platelet Count 210 10x3/uL (130-400); RBC Distribution Width 15.8 % (11.5-14.5); Red Blood Cell (RBC) Count 2.94 mill/uL (4.70-6.10); White Blood Cell (WBC) Count 8.5 10x3/uL (4.8-10.8)
[2023-06-22] MEDS: Acetaminophen 325 MG TAB PO SCH ×4 (05:28→23:59)
[2023-06-22] MEDS: Vancomycin (BATCH) 1.25 GM in Premix 1 BAG IVPB SCH (05:29)
[2023-06-22 05:54] LABS: Anion Gap 12 mmol/L (10-20); BUN (Urea Nitrogen) 13 mg/dL (8.4-25.7); Calc. Creatinine Clearance 118 mL/min (70-130); Calcium 8.1 mg/dL (7.8-10.44); Carbon Dioxide 24 mmol/L (22-29); Chloride 107 mmol/L (98-107); Estimated GFR 107; Glucose 88 mg/dL (70-105); Magnesium 1.8 mg/dL (1.6-2.6); Potassium 3.3 mmol/L (3.5-5.1); Sodium 140 mmol/L (136-145)
[2023-06-22] MEDS ORDERED: Magnesium 2 GM/50 ML(in water) 2 GM in Premix 1 BAG IVPB SCH (08:00)
[2023-06-22] MEDS ORDERED: Potassium Chloride 20 MEQ TAB PO SCH (08:00)
[2023-06-22] MEDS: Lisinopril 5 MG TAB PO SCH (09:01)
[2023-06-22] MEDS: Carvedilol 3.125 MG TAB PO SCH ×2 (09:01→17:42)
[2023-06-22] MEDS: Aspirin 81 mg Enteric Coated Tablet PO SCH (09:01)
[2023-06-22] MEDS: Famotidine 20 MG TAB PO SCH ×2 (09:02→21:37)
[2023-06-22] MEDS: Clopidogrel Bisulfate 75 MG TAB PO SCH (09:02)
[2023-06-22] MEDS: Lidocaine 4% Patch TD SCH ×2 (10:22→21:36)
[2023-06-22] MEDS: Senokot S 8.6-50 MG TAB PO SCH ×2 (10:23→21:37)
[2023-06-22] MEDS: Polyethylene Glycol 3350 17 GM Packet PO SCH (10:23)
[2023-06-22] MEDS: Potassium Chloride 20 MEQ in Premix 1 BAG IVPB SCH ×4 (16:19→21:36)
[2023-06-22] MEDS: Rosuvastatin 20 MG TAB PO SCH (21:36)
[2023-06-22] MEDS: Insulin Glargine 30 UNITS/0.3 ML VIAL SC SCH (21:37)
[2023-06-23 06:07] LABS: #Eosinphils 0.1 thou/uL (0.0-0.7); #Monocytes 0.9 thou/uL (0.11-0.59); #Neutrophils 5.2 thou/uL (1.40-6.50); %Basophils 0.3 % (0.0-1.0); %Eosinophils 1.4 % (0.0-10.0); %Lymphocytes 13.2 % (21.0-51.0); %Monocytes 12.9 % (0.0-10.0); %Neutrophils 71.4 % (42.0-75.0); Hematocrit 29.9 % (42.0-52.0); Hemoglobin 9.9 g/dL (14.0-18.0); Mean Corpuscular HGB CONC 33.1 g/dL (32.0-36.0); Mean Corpuscular Hemoglobin 31.9 pg (27.0-31.0); Mean Corpuscular Volume 96.5 fl (78.0-98.0); Mean Platelet Volume 9.9 fL (7.4-10.4); Platelet Count 234 10x3/uL (130-400); RBC Distribution Width 16.2 % (11.5-14.5); White Blood Cell (WBC) Count 7.3 10x3/uL (4.8-10.8)
[2023-06-23] MEDS: Acetaminophen 325 MG TAB PO SCH ×3 (06:20→17:42)
[2023-06-23 06:52] LABS: Anion Gap 13 mmol/L (10-20); Calcium 8.1 mg/dL (7.8-10.44); Carbon Dioxide 23 mmol/L (22-29); Chloride 107 mmol/L (98-107); Glucose 104 mg/dL (70-105); Potassium 3.7 mmol/L (3.5-5.1); Sodium 139 mmol/L (136-145)
[2023-06-23 07:02] LABS: BUN (Urea Nitrogen) 11 mg/dL (8.4-25.7); Calc. Creatinine Clearance 118 mL/min (70-130); Estimated GFR 107
[2023-06-23] MEDS: Lisinopril 5 MG TAB PO SCH (08:17)
[2023-06-23] MEDS: Carvedilol 3.125 MG TAB PO SCH ×2 (08:17→16:18)
[2023-06-23] MEDS: Aspirin 81 mg Enteric Coated Tablet PO SCH (08:17)
[2023-06-23] MEDS: Clopidogrel Bisulfate 75 MG TAB PO SCH (08:17)
[2023-06-23] MEDS: Famotidine 20 MG TAB PO SCH ×2 (08:17→21:29)
[2023-06-23] MEDS: Polyethylene Glycol 3350 17 GM Packet PO SCH (08:18)
[2023-06-23] MEDS: Lidocaine 4% Patch TD SCH ×2 (08:18→21:30)
[2023-06-23] MEDS: Senokot S 8.6-50 MG TAB PO SCH ×2 (08:18→21:30)
[2023-06-23] MEDS: Insulin Glargine 30 UNITS/0.3 ML VIAL SC SCH (21:29)
[2023-06-23] MEDS: Rosuvastatin 20 MG TAB PO SCH (21:29)
[2023-06-24] MEDS: Acetaminophen 325 MG TAB PO SCH ×4 (00:41→18:04)
[2023-06-24] MEDS: Famotidine 20 MG TAB PO SCH (10:08)
[2023-06-24] MEDS: Aspirin 81 mg Enteric Coated Tablet PO SCH (10:08)
[2023-06-24] MEDS: Clopidogrel Bisulfate 75 MG TAB PO SCH (10:08)
[2023-06-24] MEDS: Polyethylene Glycol 3350 17 GM Packet PO SCH (10:09)
[2023-06-24] MEDS: Senokot S 8.6-50 MG TAB PO SCH (10:09)
[2023-06-24] MEDS: Lisinopril 5 MG TAB PO SCH (10:09)
[2023-06-24] MEDS: Lidocaine 4% Patch TD SCH (10:09)
[2023-06-24] MEDS: Carvedilol 3.125 MG TAB PO SCH ×2 (10:09→17:13)
[2023-06-24 13:36] LABS: Vancomycin, Trough Less than 1.1 ug/mL
[2023-06-24 15:47] VITALS: TEMP 98.1
[2023-06-24 17:14] VITALS: BP 102/70
[2023-06-27 13:27] LABS: Actual Bicarbonate (HCO3a) 24.9 mEq/L (22-28); Analyzer IN Cardio OR; Base Excess (BEa) 1.4 mEq/L (-2.0 to +3.0); Calcium, Ionized (arterial) 1.08 mmol/L (1.12-1.30); Carboxyhemoglobin (COHb) 0.7 gm% (0.0-3.0); Hematocrit-ABG 28 % (42.0-52.0); Hemoglobin (Hb) 9.6 g/dL (14.0-18.0); O2 Tension (PaO2), arterial 175.8 mmHg (80.0-100.0); Potassium - ABG Lab 3.74 mmol/L (3.70-5.30)
[2023-06-27 13:28] LABS: Puncture Site Arterial Line
== END 2023-06-24 18:26 | DRG 957 ==
LOC: ERS 08:25 → CCU 10:29 → SURG A 06-17 09:19 → 2SE 06-19 03:04 → SURG A 06-22 11:30
PROVIDERS: ADMIT Student in an Organized Health Care Education/Training Program; ATTEND Student in an Organized Health Care Education/Training Program
PROC: 03HY32Z Insertion of Monitoring Device into Upper Artery, Percutaneous Approach (ICD-10-PCS; principal; 2023-06-12)
PROC: 30233N1 Transfusion of Nonautologous Red Blood Cells into Peripheral Vein, Percutaneous Approach (ICD-10-PCS; 2023-06-12)
PROC: 4A133R1 Monitoring of Arterial Saturation, Peripheral, Percutaneous Approach (ICD-10-PCS; 2023-06-12)
PROC: 3E033XZ Introduction of Vasopressor into Peripheral Vein, Percutaneous Approach (ICD-10-PCS; 2023-06-12)
PROC: 0BH17EZ Insertion of Endotracheal Airway into Trachea, Via Natural or Artificial Opening (ICD-10-PCS; 2023-06-12)
PROC: 5A1945Z Respiratory Ventilation, 24-96 Consecutive Hours (ICD-10-PCS; 2023-06-12)
PROC: 4A133B1 Monitoring of Arterial Pressure, Peripheral, Percutaneous Approach (ICD-10-PCS; 2023-06-14)
PROC: 4A133J1 Monitoring of Arterial Pulse, Peripheral, Percutaneous Approach (ICD-10-PCS; 2023-06-14)
PROC: 00NX0ZZ Release Thoracic Spinal Cord, Open Approach (ICD-10-PCS; 2023-06-14)
PROC: 0PS404Z Reposition Thoracic Vertebra with Internal Fixation Device, Open Approach (ICD-10-PCS; 2023-06-14)
PROC: 0RG7071 Fusion of 2 to 7 Thoracic Vertebral Joints with Autologous Tissue Substitute, Posterior Approach, Posterior Column, Open Approach (ICD-10-PCS; 2023-06-14)
PROC: 0W9B30Z Drainage of Left Pleural Cavity with Drainage Device, Percutaneous Approach (ICD-10-PCS; 2023-06-14)
PROC: 30233K1 Transfusion of Nonautologous Frozen Plasma into Peripheral Vein, Percutaneous Approach (ICD-10-PCS; 2023-06-14)
DX: S22.078A Other fracture of T9-T10 vertebra, initial encounter for closed fracture (principal); S24.103A Unspecified injury at T7-T10 level of thoracic spinal cord, initial encounter; S06.6XAA Traumatic subarachnoid hemorrhage with loss of consciousness status unknown, initial encounter; G93.41 Metabolic encephalopathy; S27.2XXA Traumatic hemopneumothorax, initial encounter; J96.01 Acute respiratory failure with hypoxia; R57.8 Other shock; I21.4 Non-ST elevation (NSTEMI) myocardial infarction; S12.690A Other displaced fracture of seventh cervical vertebra, initial encounter for closed fracture; S22.49XA Multiple fractures of ribs, unspecified side, initial encounter for closed fracture; E87.20 Acidosis, unspecified; S27.322A Contusion of lung, bilateral, initial encounter; J90 Pleural effusion, not elsewhere classified; D62 Acute posthemorrhagic anemia; S22.068A Other fracture of T7-T8 thoracic vertebra, initial encounter for closed fracture; E83.41 Hypermagnesemia; E87.5 Hyperkalemia; V29.99XA Rider (driver) (passenger) of other motorcycle injured in unspecified traffic accident, initial encounter; I25.10 Atherosclerotic heart disease of native coronary artery without angina pectoris; Z51.5 Encounter for palliative care; E87.6 Hypokalemia; E78.00 Pure hypercholesterolemia, unspecified; E83.42 Hypomagnesemia; Z79.82 Long term (current) use of aspirin; Z79.899 Other long term (current) drug therapy; I25.2 Old myocardial infarction; Z95.5 Presence of coronary angioplasty implant and graft
CPT/HCPCS: 31500; 32551; 36415; 36416; 36430; 36556; 70450; 70486; 70498; 71045; 71260; 72125; 72146; 72170; 74177; 80048; 80053; 80061; 80202; 81001; 82533; 82805; 83605; 83690; 83735; 83880; 84100; 84484; 85025; 85610; 85730; 86850; 86900; 86901; 90471; 90715; 93005; 93010; 93306; 94002; 94003; 94760; 96365; 96366; 96375; 99292; C1713; C1889; G0390; J0171; J0613; J0696; J1644; J1650; J1720; J1815; J1885; J1940; J2001; J2060; J2250; J2270; J2272; J2405; J2704; J3010; J3370; J3370-JW; J3475; J3480; J3490; J7030; J7050; J7070; J7120; P9016; P9035; P9059; Q9967; S0028

== ENCOUNTER 2024-01-04 17:46 | Inpatient (IN) | payer OTHER ==
[2024-01-04 18:26] VITALS: BMI 21.9
[2024-01-04] MEDS ORDERED: hydrALAZINE 20 MG/ML VIAL SLOW IVP PRN (19:12)
[2024-01-04] MEDS: Heparin 5,000 UNITS/ML VIAL SC SCH (20:37)
[2024-01-04] MEDS: Acetaminophen 325 MG TAB PO PRN (20:37)
[2024-01-04] MEDS: Atorvastatin Calcium 40 MG TAB PO SCH (20:37)
[2024-01-04] MEDS ORDERED: Ondansetron PF 4 MG/2 ML Vial IVP PRN (20:51)
[2024-01-05 04:08] LABS: #Basophils Less than 0.03 10x3/uL (0.0-0.2); %Basophils 0.4 % (0.0-1.0); %Eosinophils 1.5 % (0.0-10.0); %Lymphocytes 35.9 % (21.0-51.0); %Monocytes 12.4 % (0.0-10.0); %Neutrophils 49.4 % (42.0-75.0); Hematocrit 39.5 % (42.0-52.0); Hemoglobin 13.6 g/dL (14.0-18.0); Mean Corpuscular HGB CONC 34.4 g/dL (32.0-36.0); Mean Corpuscular Hemoglobin 33.7 pg (27.0-31.0); Mean Platelet Volume 9.8 fL (7.4-10.4); Platelet Count 181 10x3/uL (130-400); RBC Distribution Width 13.8 % (11.5-14.5); Red Blood Cell (RBC) Count 4.03 mill/uL (4.70-6.10)
[2024-01-05 04:22] LABS: Anion Gap 14 mmol/L (10-20); BUN (Urea Nitrogen) 16 mg/dL (8.4-25.7); Calc. Creatinine Clearance 86 mL/min (70-130); Calcium 8.9 mg/dL (7.8-10.44); Carbon Dioxide 22 mmol/L (22-29); Cardiac Risk 6.7 (Less than 4.5); Chloride 107 mmol/L (98-107); Cholesterol 551 mg/dl (< 200 Desired); Estimated GFR 101; Glucose 87 mg/dL (70-105); HDL Cholesterol 82 mg/dL (>60 Neg Risk); LDL Cholesterol, Calculated 449 mg/dL; Potassium 3.3 mmol/L (3.5-5.1); Sodium 140 mmol/L (136-145); Triglycerides 99 mg/dL (Less than 150)
[2024-01-05 04:23] LABS: Hemoglobin A1c 5.1 % (4.0-6.0)
[2024-01-05] MEDS: Aspirin 81 mg Enteric Coated Tablet PO SCH (09:51)
[2024-01-05] MEDS: Potassium Chloride 20 MEQ TAB PO SCH (17:03)
[2024-01-05 18:15] VITALS: BP 150/91; TEMP 98.1
== END 2024-01-05 18:20 | disposition home or self-care (01) | DRG 66 ==
LOC: 2SE 17:46 → INTOOBSV 17:46 → OBSVTOIN 01-05 12:55
PROVIDERS: ADMIT Internal Medicine; ATTEND Internal Medicine
DX: I63.511 Cerebral infarction due to unspecified occlusion or stenosis of right middle cerebral artery (principal); I25.10 Atherosclerotic heart disease of native coronary artery without angina pectoris; I11.9 Hypertensive heart disease without heart failure; E78.5 Hyperlipidemia, unspecified; E87.6 Hypokalemia; Z98.890 Other specified postprocedural states; Z79.82 Long term (current) use of aspirin
CPT/HCPCS: 36415; 70551; 80048; 80061; 83036; 84443; 85025; 93306; 96372; G0378; J1644